=== PATIENT | female | born 1935 | race Caucasian/White ===

== ENCOUNTER 2017-03-21 07:36 | Emergency (ER) | payer MEDICARE, BC ==
[2016-03-24 14:30] VITALS: BMI 25.6
[~2017-03-21 07:36] MED LIST: HYDROCODON-ACE1 EAC7 PO; LISINOPRIL10 MG PO; TENORMIN25 MG PO; VITAMIN B-1000 MCG/M IM; VITAMIN D50000 UNIT PO
[2017-03-21 08:30] LABS: APPEARANCE CLEAR (CLEAR); BILIRUBIN NEGATIVE (NEGATIVE); COLOR YELLOW (YELLOW); GLUCOSE NEGATIVE (NEGATIVE); KETONE NEGATIVE (NEGATIVE); LEUKOCYTE ESTERASE NEGATIVE (NEGATIVE); NITRITE NEGATIVE (NEGATIVE); PROTEIN NEGATIVE (NEGATIVE); SPECIFIC GRAVITY 1.015 (1.005-1.020); UROBILINOGEN NORMAL (NORMAL)
[2017-03-21 09:38] LABS: BASOPHILS 0.2 % (0-2); EOSINOPHILS 0.8 % (0-7); HEMOGLOBIN 14.5 g/dL (12-16); IMMATURE GRANULOCYTES 0.3 % (0-5); LYMPHOCYTES 25.5 % (15-50); MCH 31.4 pg (26.0-34.0); MCHC 34.5 g/dL (31.0-37.0); MCV 90.9 fL (80.0-100.0); MEAN PLATELET VOLUME 9.5 fL (7.4-10.4); NEUTROPHILS 66.2 % (40-80); RBC 4.62 10x6/uL (4.00-5.40); WBC 6.6 10x3/uL (4.8-10.8)
[2017-03-21 09:46] LABS: PLATELET COUNT 156 10x3/uL (130-400)
[2017-03-21 09:59] LABS: ALBUMIN 4.2 g/dL (3.4-5.0); ANION GAP 16.9 mmol/L (8-16); BILIRUBIN - TOTAL 0.25 mg/dL (0.2-1.3); CALCIUM 9.3 mg/dL (8.5-10.1); CARBON DIOXIDE 23.7 mmol/L (21.0-32.0); POTASSIUM - SERUM 4.6 mmol/L (3.5-5.1); PROTEIN - SERUM 7.7 g/dL (6.4-8.2)
== END 2017-03-21 11:38 | disposition home or self-care (01) ==
LOC: D.ER 07:36
PROVIDERS: Emergency Medicine; Family Medicine
DX: R10.9 Unspecified abdominal pain (principal)

== ENCOUNTER → 2019-01-16 08:12 | Outpatient (CLI) | payer MEDICARE, BC ==
[2016-03-24 14:30] VITALS: BMI 25.6
[~2019-01-16 08:12] MED LIST changes: +CIPRO500 MG PO; +LOMOTIL 2.5-0.1 EAC1 PO
[2019-01-24 14:09] LABS: OVA + PARASITE EXAM Final report (())
== END | disposition home or self-care (01) ==
LOC: D.LAB 08:12
PROVIDERS: ATTEND Family Medicine
DX: R19.7 Diarrhea, unspecified (principal)

== ENCOUNTER 2019-01-19 12:37 | Emergency (ER) | payer MEDICARE, BC ==
[~2019-01-19] VITALS: Ht 160 cm; Wt 54.5 kg
[~2019-01-19 12:37] MED LIST changes: -CIPRO500 MG PO; -LOMOTIL 2.5-0.1 EAC1 PO
[2019-01-19 13:01] VITALS: Ht 160 cm; Wt 54.5 kg
[2019-01-19] MEDS ORDERED: TENORMIN25 MG PO (13:02)
[2019-01-19 14:07] LABS: BASOPHILS 0.3 % (0-2); EOSINOPHILS 0.3 % (0-7); HEMATOCRIT 40.9 % (36.0-48.0); HEMOGLOBIN 14.2 g/dL (12-16); IMMATURE GRANULOCYTES 0.2 % (0-5); LYMPHOCYTES 24.1 % (15-50); MCH 31.7 pg (26.0-34.0); MCHC 34.7 g/dL (31.0-37.0); MCV 91.3 fL (80.0-100.0); MEAN PLATELET VOLUME 9.1 fL (7.4-10.4); MONOCYTES 8.9 % (2-11); NEUTROPHILS 66.2 % (40-80); PLATELET COUNT 173 10x3/uL (130-400); RBC 4.48 10x6/uL (4.00-5.40); RDW 12.6 % (11.5-14.5); WBC 6.4 10x3/uL (4.8-10.8)
[2019-01-19 14:14] LABS: APPEARANCE CLEAR (CLEAR); BILIRUBIN NEGATIVE (NEGATIVE); COLOR STRAW (YELLOW); GLUCOSE NEGATIVE (NEGATIVE); KETONE NEGATIVE (NEGATIVE); NITRITE NEGATIVE (NEGATIVE); PROTEIN NEGATIVE (NEGATIVE); SPECIFIC GRAVITY 1.005 (1.005-1.020); UROBILINOGEN NORMAL (NORMAL)
[2019-01-19 14:15] LABS: ALBUMIN 3.9 g/dL (3.4-5.0); ALKALINE PHOSPHATASE 84 U/L (46-116); ALT (SGPT) 23 U/L (10-68); BACTERIA FEW /hpf (NONE SEEN); BILIRUBIN - TOTAL 0.48 mg/dL (0.2-1.3); CALC OSMOLALITY 268 mosm/kg (275-300); CALCIUM 8.9 mg/dL (8.5-10.1); CARBON DIOXIDE 25.5 mmol/L (21.0-32.0); CHLORIDE - SERUM 101 mmol/L (98-107); CREATININE - SERUM 0.8 mg/dL (0.6-1.3); EPITHELIAL CELLS 0-5 /hpf (0-5); POTASSIUM - SERUM 3.8 mmol/L (3.5-5.1); PROTEIN - SERUM 7.3 g/dL (6.4-8.2); RED CELLS - URINE 0-5 /hpf (0-5); SODIUM 135 mmol/L (136-145); UREA NITROGEN 9 mg/dL (7-18); eGFR NON AFRICAN AMERICAN 73 mL/min (90-120)
[2019-01-19 14:16] LABS: GLUCOSE 99 mg/dL (74-106)
[2019-01-19 14:20] LABS: AMYLASE - SERUM 44 U/L (25-115); LIPASE 109 U/L (73-393)
[2019-01-19 14:34] LABS: TROPONIN-I < 0.017 ng/mL (0.000-0.060)
[2019-01-19] MEDS ORDERED: CIPRO500 MG PO (16:26)
[2019-01-19] MEDS ORDERED: LOMOTIL 2.5-0.1 EAC1 PO (16:26)
[2019-01-19 17:02] VITALS: BP 141/79
== END 2019-01-19 17:03 | disposition home or self-care (01) ==
LOC: D.ER 12:37
PROVIDERS: Family Medicine
DX: N39.0 Urinary tract infection, site not specified (principal); R19.7 Diarrhea, unspecified; I10 Essential (primary) hypertension